=== PATIENT | female | born 1990 | race Caucasian/White ===

== ENCOUNTER 2019-01-12 15:31 | Inpatient (IN) ==
[2019-01-12] MEDS ORDERED: IMODIUM PO PRN ×2 (15:47)
[2019-01-12] MEDS ORDERED: DULCOLAX PR PRN (15:47)
[2019-01-12] MEDS ORDERED: MAALOX PLUS LIQUID PO PRN (15:47)
[2019-01-12] MEDS ORDERED: NICOTINE GUM BUCCAL PRN (15:47)
[2019-01-12] MEDS ORDERED: D5W 1,000 ML IV PRN (15:47)
[2019-01-12] MEDS ORDERED: SENOKOT PO PRN (15:47)
[2019-01-12] MEDS ORDERED: ZOFRAN ODT PO PRN (15:47)
[2019-01-12] MEDS ORDERED: TYLENOL PO PRN (15:47)
[2019-01-12] MEDS ORDERED: MOTRIN PO PRN (15:47)
[2019-01-12] MEDS ORDERED: DESYREL PO PRN (15:47)
[2019-01-12] MEDS ORDERED: ZOFRAN IM PRN (15:47)
[2019-01-12] MEDS ORDERED: PHENOBARBITAL IV PRN (15:47)
[2019-01-12] MEDS ORDERED: ZOFRAN IV PRN (15:47)
[2019-01-12 16:15] LABS: HEMATOCRIT 35.6 % (37.0-47.0); HEMOGLOBIN 12.2 g/dL (12.0-16.0); MCH 30.9 PG (27-31); MCHC 34.3 g/dL (33-37); MCV 90.1 FL (81-99); MPV 9.9 FL (7.4-10.4); RBC 3.95 XMIL (4.2-5.4); RDW 13.7 % (11.5-14.5); WBC 8.56 X1000 (4.8-10.8)
[2019-01-12 16:31] LABS: AGAP 10; ALBUMIN 4.9 g/dL (3.5-5.0); ALKALINE PHOSPHATASE 51 U/L (32-104); AMYLASE 29 U/L (20-200); BUN 13 mg/dL (8-22); CALCIUM 8.8 mg/dL (8.8-10.2); CHLORIDE 105 mmol/L (98-107); COSMO 281; CREATININE 0.7 mg/dL (0.5-0.9); ESTIMATED GFR > 60; GLUCOSE 90 mg/dL (70-104); GOT 13 U/L (10-30); GPT 14 U/L (10-36); LIPASE 9 U/L (13-60); POTASSIUM 3.7 mmol/L (3.5-5.1); SODIUM 141 mmol/L (136-145); TCO2 26 mmol/L (25-35); TOTAL PROTEIN 6.9 g/dL (6.3-8.3)
[2019-01-12] MEDS: NICODERM PATCH TD PRN (16:46)
[2019-01-12] MEDS ORDERED: LIBRIUM PO PRN (17:46)
[2019-01-12] MEDS ORDERED: ROBAXIN PO PRN (17:46)
[2019-01-12] MEDS ORDERED: SINEMET 25/100 PO PRN (17:46)
[2019-01-12] MEDS ORDERED: ATARAX PO PRN (17:46)
[2019-01-12] MEDS ORDERED: BENTYL PO PRN (17:46)
[2019-01-12] MEDS: LIBRIUM PO SCH (18:54)
--- NOTE | 2019-01-12 18:57 | HISTORY AND PHYSICAL ---
CHIEF COMPLAINT: Nausea and vomiting. HISTORY OF PRESENT ILLNESS: The patient is a 28-year-old female who re-presented to [facility] secondary to nausea, vomiting, abdominal pain, myalgias, tremors, and paresthesias. She notes that she has been using and abusing polysubstances again. She states she only uses opiates occasionally, but her main drug of choice recently has been meth. SOCIAL HISTORY: Patient is single. She is 28. She is unemployed. Lives at home in [place]. PAST MEDICAL HISTORY: She has no active medical problems, other than chronic anxiety, depression. She had blackouts as a teenager, though was likely drug related, although currently is not having any issues. MEDICATIONS: None. ALLERGIES: None. REVIEW OF SYSTEMS: CINA score 17 secondary to nausea, vomiting, abdominal pain, myalgias, and paresthesias. Notes that she has been having significant withdrawal symptoms. She has had decreased oral intake, has been having sweating chills. Denies any headaches, blurred vision, change in vision. Denies any focalized numbness, tingling, or and weakness in her extremities. Denies dysuria, frequency, or urgency. Denies hesitancy, polyuria, or polydipsia. SUBSTANCE ABUSE HISTORY: The patient was in [facility] in 2018, remained sober for 1 to 2 months. She was in [facility] in 2019, almost immediately started re-abusing. Notes that the drug use has caused legal, financial, and relationship problems. States "I am ready to get sober." She wants to go to [facility] at discharge. Notes she does not drink alcohol. She started marijuana at 13. States she could quit whenever she wants to, but she has been using daily. Notes she has been using Xanax at 15, uses 2 to 3 pills a day. Has been using ice recently, started at age 18, in fact used this morning. She has been snorting and smoking. States she also uses it IV. States she does not use opiates, although then she states she snorts occasionally. Started smoking at 13, still currently smokes pack a day. Notes that she takes Unisom on a regular basis, but usually only takes 1 or 2 when she does. FAMILY HISTORY: Noncontributory. PHYSICAL EXAMINATION: VITAL SIGNS: Reviewed and stable. Patient is awake, alert. She is in no distress. NECK: Supple. CARDIOVASCULAR: Regular rate. CHEST: Clear. ABDOMEN: Soft. EXTREMITIES: Moves all extremities. ASSESSMENT: 1. Nausea and vomiting. 2. Abdominal pain. 3. Myalgias. 4. Paresthesias. 5. Polysubstance use and abuse. 6. Chronic tobacco abuse. PLAN: Discussed with patient that she has to make a decision as to whether she wants her life or wants drugs. Discussed that there is nothing that is going to make her stay sober. Discussed that she needs to avoid situations, persons, places, things that trigger or encourage use and abuse. We will continue to follow. We will start her on Librium, taper, and follow. cc: Herbie Escalante MD
[2019-01-12] MEDS ORDERED: M.V.I.-12 10 ML, FOLIC ACID 1 MG, MAGNESIUM SULFATE 1 GM, THIAMINE 100 MG in NS 1,000 ML IV ONE (19:00)
[2019-01-12 19:05] LABS: URINE SOURCE CLEAN CATCH
[2019-01-12 19:16] LABS: BILIRUBIN URINE NEGATIVE (NEGATIVE); BLOOD URINE 4+ (NEGATIVE); CLARITY CLEAR (CLEAR); COLOR YELLOW; GLUCOSE URINE NEGATIVE (NEGATIVE); KETONE URINE NEGATIVE (NEGATIVE); LEUKOCYTES URINE 1+ (NEGATIVE); NITRITE URINE NEGATIVE (NEGATIVE); PH URINE 6.5; PROTEIN URINE TRACE mg/dL (NEGATIVE); UROBILINOGEN URINE NORMAL
[2019-01-12 19:19] LABS: URINE BACTERIA NEGATIVE /HFP; URINE EPITHELIAL CELLS >10 /HPF (<10); URINE YEAST NONE SEEN /HPF
[2019-01-12 19:20] LABS: URINE CAST NONE SEEN /LPF; URINE CRYSTAL NONE SEEN /HPF
[2019-01-12 19:23] LABS: UR AMPHETAMINES QUAL PRESUMPTIVE POSITIVE (NONE DETECT); UR BARBITUATES QUAL NONE DETECTED (NONE DETECT); UR BENZODIAZEPIN QUAL PRESUMPTIVE POSITIVE (NONE DETECT); UR CANNABINOIDS QUAL PRESUMPTIVE POSITIVE (NONE DETECT); UR COCAINE QUAL NONE DETECTED (NONE DETECT); UR METHADONE QUAL NONE DETECTED (NONE DETECT)
[2019-01-12 19:24] LABS: UR METHAMPHETAMINE QUAL NONE DETECTED (NONE DETECT); UR OPIATES QUAL NONE DETECTED (NONE DETECT); UR OXYCODONE QUAL NONE DETECTED (NONE DETECT); UR PCP QUAL NONE DETECTED (NONE DETECT); UR PROPOXYPHENE QUAL NONE DETECTED (NONE DETECT); UR TCA QUAL NONE DETECTED (NONE DETECT)
[2019-01-12] MEDS: SEROQUEL PO PRN (22:12)
[2019-01-13] MEDS: LIBRIUM PO SCH ×4 (04:55→18:52)
[2019-01-13] MEDS: PROTONIX PO SCH (10:56)
[2019-01-13] MEDS: THERA M PLUS PO SCH (10:56)
[2019-01-13] MEDS: FOLIC ACID PO SCH (10:56)
[2019-01-13] MEDS: VITAMIN B-1 PO SCH (10:56)
--- NOTE | 2019-01-13 20:15 | PROGRESS NOTE ---
DATE: 01/13/2019 SUBJECTIVE: Patient notes that she is feeling a little bit better. She did sleep a little bit last night. Denies any fevers or chills. Denies cough or congestion. OBJECTIVE: Vital Signs: Reviewed and stable. Patient is awake and alert. He is in no respiratory distress. HEENT: Normocephalic. Neck: Supple. Cardiovascular: Regular rate. Chest: Clear. Abdomen: Soft. Extremities: Moves all extremities. ASSESSMENT: 1. Nausea and vomiting. 2. Abdominal pain. 3. Myalgias. 4. Paresthesias. 5. Paroxysmal sweating. 6. Polysubstance use and abuse. PLAN: We will continue patient in the hospital on Librium taper. Continue counseling. Further orders as needed. cc: Herbie Escalante MD
[2019-01-13] MEDS: NICODERM PATCH TD PRN (22:28)
[2019-01-14] MEDS: SEROQUEL PO PRN ×2 (00:52→21:45)
[2019-01-14] MEDS: LIBRIUM PO SCH ×3 (02:05→18:44)
[2019-01-14] MEDS: PROTONIX PO SCH (06:05)
[2019-01-14] MEDS: VITAMIN B-1 PO SCH (10:08)
[2019-01-14] MEDS: THERA M PLUS PO SCH (10:08)
[2019-01-14] MEDS: FOLIC ACID PO SCH (10:08)
--- NOTE | 2019-01-14 19:21 | PROGRESS NOTE ---
DATE: 01/14/2019 SUBJECTIVE: The patient notes that she is feeling okay. Denies any fevers or chills. Notes her muscle aches are better. OBJECTIVE: Vital signs reviewed. She is afebrile. Blood pressure is stable. Respiratory 20.General: The patient is awake. She is lying in bed. She is in no distress. HEENT: Normocephalic. Neck supple. Cardiovascular: Regular rate. Chest clear. Abdomen soft. Extremities: Moves all extremities. ASSESSMENT: 1. Nausea and vomiting. 2. Abdominal pain. 3. Myalgias. 4. Paresthesias. 5. Polysubstance use and abuse. PLAN: We will continue the patient in the hospital. Continue to wean the Librium. Further orders as needed. Hopefully home over the next 1 or 2 days. cc: Herbie Escalante MD
[2019-01-15] MEDS: LIBRIUM PO SCH ×4 (01:04→21:08)
[2019-01-15] MEDS: PROTONIX PO SCH (06:10)
[2019-01-15] MEDS: FOLIC ACID PO SCH (09:43)
[2019-01-15] MEDS: THERA M PLUS PO SCH (09:43)
[2019-01-15] MEDS: VITAMIN B-1 PO SCH (09:43)
[2019-01-15] MEDS: NICODERM PATCH TD PRN (16:33)
[2019-01-15] MEDS ORDERED: LIBRIUM PO SCH (21:00)
[2019-01-15] MEDS: SEROQUEL PO PRN (21:08)
--- NOTE | 2019-01-15 22:34 | PROGRESS NOTE ---
DATE: 01/15/2019 SUBJECTIVE: Patient notes that she is feeling okay. Denies any fevers, chills. Denies cough, congestion. Denies any dysuria, urinary frequency, urgency. PHYSICAL EXAMINATION: Vital Signs: Reviewed. General: Patient is awake, alert. She is in no current respiratory distress. HEENT: Normocephalic. Neck: Supple. Cardiovascular: Regular rate. No murmurs. Chest: Clear and nonlabored. Abdomen: Soft, nondistended. Extremities: Moves all extremities. Neurologic: No changes. ASSESSMENT: 1. Nausea, vomiting. 2. Abdominal pain. 3. Myalgias. 4. Paresthesias. 5. Paroxysmal sweating. 6. Polysubstance abuse, withdrawal and admit for stabilization. PLAN: We will continue patient in the hospital. Hopefully she can transition to further long- term care. Further orders as needed. cc: Herbie Escalante MD
[2019-01-16] MEDS: PROTONIX PO SCH (06:06)
[2019-01-16] MEDS: FOLIC ACID PO SCH (10:59)
[2019-01-16] MEDS: VITAMIN B-1 PO SCH (10:59)
[2019-01-16] MEDS: LIBRIUM PO SCH ×2 (10:59→20:01)
[2019-01-16] MEDS: THERA M PLUS PO SCH (10:59)
[2019-01-16] MEDS: NICODERM PATCH TD PRN (17:24)
[2019-01-16] MEDS: SEROQUEL PO PRN (22:47)
[2019-01-17 00:10] VITALS: BP 114/49
--- NOTE | 2019-01-17 00:15 | PROGRESS NOTE ---
DATE: 01/16/2019 SUBJECTIVE: Patient has no complaints. PHYSICAL EXAMINATION: Vital Signs: Reviewed and stable. General: Patient is awake, alert. She is in no distress. HEENT: Normocephalic. Neck: Supple. Cardiovascular: Regular rate. Chest: Clear. Abdomen: Soft. Extremities: Moves all extremities. Neurologic: No changes. ASSESSMENT: 1. Nausea, vomiting. 2. Abdominal pain. 3. Myalgias. 4. Paresthesias. 5. Paroxysmal sweating. 6. Polysubstance abuse, withdrawal and stabilization. PLAN: The patient will be kept in the hospital. Currently, there is no bed for long-term care. I personally spent 30 minutes today in discussion with Ms. Mei regarding use, abuse, avoidance, etc. cc: Herbie Escalante MD
[2019-01-17] MEDS: PROTONIX PO SCH (06:04)
[2019-01-17] MEDS: LIBRIUM PO SCH (11:18)
[2019-01-17] MEDS: FOLIC ACID PO SCH (11:19)
[2019-01-17] MEDS: THERA M PLUS PO SCH (11:19)
[2019-01-17] MEDS: VITAMIN B-1 PO SCH (11:19)
--- NOTE | 2019-01-17 16:59 | DISCHARGE SUMMARY ---
ADMISSION DATE: 01/12/2019 DISCHARGE DATE: 01/17/2019 DISCHARGE DIAGNOSES: 1. Nausea, vomiting. 2. Abdominal pain. 3. Myalgias. 4. Depression and anxiety. 5. Polysubstance abuse. 6. Chronic tobacco abuse. HOSPITAL COURSE: The patient presented to [facility] secondary to nausea, vomiting, abdominal pain, and myalgias. She was placed on Librium taper. Counseling was performed each day by myself. She continued to improve. On discharge, she is awake, alert, and oriented. Her withdrawal symptoms have completely dissipated, and she was weaned off of Librium. DISPOSITION: Patient will be discharged home. Discussed with her that it would be in her best interest to stay in the hospital tonight and discharge from here to further inpatient stabilization. However, the patient is adamant that she go home tonight. Discussed with her admission was voluntary discharge. She does not need medications on discharge. Hopefully, she will follow up in the morning with further long-term care. cc: Herbie Escalante MD MTDD
== END 2019-01-17 14:45 | disposition home or self-care (01) | DRG 897 ==
LOC: P.MEDSURG 15:31
PROVIDERS: ADMIT Family Medicine; ATTEND Family Medicine